=== PATIENT | female | born 1990 | race Caucasian/White ===

== ENCOUNTER 2017-01-27 05:50 | Inpatient (IN) ==
[2017-01-27] MEDS ORDERED: Metoclopramide 10 MG/2 ML VIAL IVP PRN (05:55)
[2017-01-27] MEDS ORDERED: Naloxone 0.4 MG/ML INJ IVP PRN ×2 (05:55→08:27)
[2017-01-27] MEDS ORDERED: Famotidine 20 MG/2 ML VIAL IVP PRN (05:55)
[2017-01-27] MEDS ORDERED: Oxytocin 20 units/ LR 1000 mL 20 UNIT/1,000 ML BAG IVC SCH ×2 (06:00→19:45)
[2017-01-27] MEDS ORDERED: Ringers Solution, Lactated 1,000 ML IVC SCH (06:00)
[2017-01-27 06:42] LABS: Basophils % 0.3 %; Eosinophils # 0.1 K/mcL (0.0-0.6); Eosinophils % 0.5 %; Hematocrit 34.5 % (35.3-44.9); Hemoglobin 11.5 g/dL (11.5-15.4); Immature Platelets 11.2 % (1.1-6.1); Lymphocytes # 1.9 K/mcL (0.6-4.6); Mean Corpuscular HGB Conc 33.3 g/dL (31.6-35.5); Mean Corpuscular Hemoglobin 29.6 pg (28.0-33.3); Mean Corpuscular Volume 88.7 fL (83.0-100.0); Mean Platelet Volume 11.5 fL (9.4-12.4); Monocytes # 0.8 K/mcL (0.0-1.3); Monocytes % 6.3 %; Neutrophils # 9.2 K/mcL (1.6-8.9); Platelet Count 330 K/mcL (140-400); Red Blood Count 3.89 M/mcL (3.82-4.97); Segmented Neutrophils % 75.9 %
--- NOTE | 2017-01-27 08:24 | OB/GYN History & Physical ---
Date of Encounter: 01/27/17 Time of Encounter: 08:22 Assessment and Plan (1) Elective induction of labor planned Current visit: Yes Status: Acute patient is gregor and making change on her own, allow labor to progress, if unchanged within the next 2 hrs, AROM and start pitocin, anticipate History of Present Illness HPI: Ms. Garcia is a 26 year old female @ 40+4 weeks who presents to L&D for IOL. She presents with ctxs, no LOF, VB , feels good FM, uncomplicated course to date. Past Med Surg Social Fam HX - Past Medical History Medical history: no medical history Psychiatric history: no psych history - Past Surgical History Surgical History: no surgical history - Social History Smoking Status: Former smoker Smokeless Tobacco Status: No Alcohol use: none Drug use: none - Family History Mother Age: 43 Living Status: Still Living Hx Family Cardiac Disorders: No Hx Family Respiratory Disorders: No Hx Family Cancer: No Hx Family GI Disorders: No Hx Family Genitourinary Disorders: No Hx Family Endocrine Disorder: No Hx Family Musculoskeletal Disorders: No Hx Family Neuromuscular Disorders: No Hx Family Neurologic Disorders: No Hx Family HEENT Disorders: No Hx Family Autoimmune Disorders: No Hx Family Reproductive Disorders: No Hx Family Psychosocial Disorders: No Hx Family Medical Disorders: No Obstetrical History - Pregnancies : 1 Medications and Allergies No Known Home Drugs 01/27/17 [History] 3 Allergy/AdvReac Type Severity Reaction Status Date / Time No Known Allergies Allergy Verified 01/27/17 06:31 Review of System OB All systems PM: reviewed and no additional remarkable complaints except as stated Exam - Vital Signs Vital signs: Initial Vital Signs Pulse Resp BP 95 16 132/88 01/27/17 06:32 01/27/17 06:32 01/27/17 06:32 - Constitutional Constitutional: no acute distress - HEENT HEENT: PERRL - Neck Neck exam: full ROM - Lungs Respiratory exam: CTAB - Cardiovascular Cardiovascular exam: RRR - Abdomen Abdomen: Present: gravid - Extremities Extremities exam: warm - Cervix Dilation: 4 Results Result Diagrams: 01/27/17 06:30 Abnormal lab results WBC 12.1 K/mcL (4.3-11.1) H 01/27/17 06:30 Hct 34.5 % (35.3-44.9) L 01/27/17 06:30 Neutrophils # 9.2 K/mcL (1.6-8.9) H 01/27/17 06:30 Immature Plt Fraction 11.2 % (1.1-6.1) H 01/27/17 06:30 All other labs normal. - VTE Reasons for not Prescribing Prophylaxis: Treatment not Indicated - Low risk for VTE
[2017-01-27] MEDS ORDERED: Ondansetron 4 MG/2 ML VIAL IVP PRN (08:27)
[2017-01-27] MEDS ORDERED: *HR* FentaNYL (PF) 100 MCG/2 ML VIAL EP ONE (08:27)
[2017-01-27] MEDS ORDERED: EPHEDrine 50 MG/ML VIAL IVP PRN (08:27)
[2017-01-27] MEDS ORDERED: Bupivacaine-MPF 0.25% 10 ML VIAL EP ONE (08:27)
[2017-01-27] MEDS ORDERED: Epidural Premix (fent/bupiv) 110 ML EP SCH (08:30)
--- NOTE | 2017-01-27 08:31 | Anesthesia Evaluation PreOp ---
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: Denies Any Significant HX Other Medical History: Denies Any Significant HX Anesthesia History: No Prior Anesthetic Complications : Yes Alcohol Use: none Drug use: none Medications and Allergies No Known Home Drugs 01/27/17 [History] 3 Allergy/AdvReac Type Severity Reaction Status Date / Time No Known Allergies Allergy Verified 01/27/17 06:31 - Meds/Allergy Pre-op Review Medications Reviewed: Yes Allergies Reviewed: Yes Beta Blockers on Current Med List: No Anesthesia Results - Labs 01/27/17 06:30 Anesthesia Exam T 98.4 BP 127/84 P 66 Height: 5'3" Weight: 72.9kg NPO (# of Hours): 8 Pain Scale: 5 (with contractions) Pain Scale Used: Numeric (1 - 10) - HEENT Pupil (Motor): Pupils equal Mallampati: II Oral Opening: Greater than 3 - ACQUISITIONS LOGISTICS ANALYST LOC: Oriented ACQUISITIONS LOGISTICS ANALYST Motor: Normal RUE, Normal LUE, Normal RLE, Normal LLE, Normal Face ACQUISITIONS LOGISTICS ANALYST Sensory: Normal: RUE, LUE, RLE, LLE, Face - Cardiac Rhythm: Regular Murmur: None JVD: No Carotid Bruit: No - Pulmonary Breath Sounds: bilateral Clear Respiratory Effort: Symmetrical Anesthesia Assess/Plan ASA Score: 2 Modified [place] Scale for Level of Consciousness: Cooperative, oriented, and tranquil Anesthetic Plan: Regional Autologous Blood: No Monitoring Plan: Standard Monitors Recovery Plan: Other
[2017-01-27] MEDS ORDERED: Epidural Premix (fent/bupiv) 110 ML EP ONE ×2 (08:34→16:00)
[2017-01-27] MEDS ORDERED: *HR* FentaNYL (PF) 100 MCG/2 ML VIAL ONE (08:34)
[2017-01-27] MEDS ORDERED: Bupivacaine-MPF 0.25% 10 ML VIAL ONE (08:34)
--- NOTE | 2017-01-27 09:46 | Anesthesia Procedures ---
Date of Encounter: 01/27/17 Time of Encounter: 09:43 Procedures: Anesthesia - Epidural/Spinal Patient ID/Chart reviewed: Yes Patient examined: Yes OB Eval: Gestational age: 40 OB Eval: : 1 OB Eval: Hx Para: 0 OB Eval: Dilated at (cm): 4 OB Eval: Contractions: Non-stressed pattern Consent Obtained: Yes Supplemental Oxygen: None/Room Air Site Prep: Aseptic Technique, Sterile prep and drape, Povidone-Iodine 1% Patient position: upright Local Anesthetic: Lidocaine 1% Amount of Local Anesthetic used: 3 Touhy Needle Gauge: 18 Touhy Needle Depth (cm): 6 Catheter Depth at Skin (cm): 15 Test Dose (1.5% Lido + Epi): Volume given (mls): 3 Test Dose Result: Negative Loading Dose: 0.25% Marcaine (mls): 10 Loading Dose: Fentanyl (mcg): 100 Loading Dose Administered: Thru Catheter Infusion Med: 0.125% Bupivacaine w/ 2 mcg/ml Fentanyl Infusion Rate (mls/hr): [address]: Tegaderm, Tape Interspace Used: L4-L5 Loss of Resistance (HARRIS): Yes Blood: No CSF: No Paresthesia: No Procedure: RADHA placed 1st pass without any immediate noted complications. VSS Vitals + FHT's: 0916 BP 126/72 P 88 R 18 0939 BP134/68 P 90 R 16
--- NOTE | 2017-01-27 12:53 | OB Labor Progress Note ---
Date of Encounter: 01/27/17 Time of Encounter: 12:53 Labor Progress Note - Subjective Subjective: Patient doing well, has epidural - Vital Signs Vital Signs: VSS - Cervix Cervix: ant lip - Plan Plan: patient AROM'ed, anticipate
[2017-01-27] MEDS ORDERED: ROPIVACAINE HCL/PF 0.5% 30 ML VIAL ONE (14:16)
--- NOTE | 2017-01-27 14:35 | Anesthesia Progress Note ---
Date of Encounter: 01/27/17 Time of Encounter: 14:33 Anesthesia Note - Note Note: 01/27/17 14:33 Pt complaining of breakthrough pain in lower abdomen extending evenly across at 8 of 10. Ropivicaine 0.5% 7ml administered as bolus. Will follow up. Reason for Cancellation: Other
[2017-01-27] MEDS ORDERED: *HR* HYDROcodone/Acet 5/325 mg TABLET PO PRN (19:45)
[2017-01-27] MEDS ORDERED: Benzocaine/Menthol 56 GM AEROSOL SPRAY TP PRN (19:45)
[2017-01-27] MEDS ORDERED: Lanolin 7 G OINT...G. TP PRN (19:45)
[2017-01-27] MEDS ORDERED: Acetaminophen 325 MG TABLET PO PRN (19:45)
--- NOTE | 2017-01-27 21:38 | OB/GYN Procedure Note ---
Delivery - Delivery Date: 01/27/17 Provider: Samuel Phelps Intrapartum events: none Delivery induction: none Delivery augmentation: rupture of membranes Delivery monitor: external uterine Anesthesia: epidural Estimated Blood Loss: 200 - Infant (s) A Infant Delivery Date: 01/27/17 Infant Delivery Time: 16:58 Presentation: vertex Position: CHARO Gender: Female Viability: Viable Weight Gram: 3.1 kg at 1 minute: 8 at 5 mins: 9 Shoulder Dystocia: not encountered Placenta: spontaneous Cord: 3 umbilical vessels - Repair Episiotomy: mediolateral Laceration Description: None, Periurethral - Complications Delivery complications: none - Disposition Mom disposition: stable in LDR [place] disposition: stable in LDR - Comments Comments: Mercy is a 26 y/o now @ 40+4 weeks who delivered a viable female CHARO with infant weight 3100g @ 1658hrs via VAVD after mediolateral episiotomy was made. Placenta was delivered @ 1706hrs, APGARs 8/9, EBL 200. Mediolateral episiotomy repaired in usual fashion. Periurethral laceration repaired with 3-0 vicryl. Mother and doing well.
[2017-01-28] MEDS: Ibuprofen 600 MG TABLET PO PRN ×2 (03:55→12:11)
[2017-01-28 07:17] LABS: Basophils % 0.2 %; Eosinophils # 0.1 K/mcL (0.0-0.6); Eosinophils % 0.3 %; Hematocrit 28.3 % (35.3-44.9); Immature Granulocytes % 0.6 % (0-4); Lymphocytes # 1.9 K/mcL (0.6-4.6); Lymphocytes % 12.7 %; Mean Corpuscular HGB Conc 32.9 g/dL (31.6-35.5); Mean Corpuscular Volume 88.2 fL (83.0-100.0); Mean Platelet Volume 11.3 fL (9.4-12.4); Monocytes # 0.9 K/mcL (0.0-1.3); Monocytes % 6.3 %; Neutrophils # 11.7 K/mcL (1.6-8.9); Platelet Count 233 K/mcL (140-400); Red Blood Count 3.21 M/mcL (3.82-4.97); Red Cell Distribution Width 14.4 % (11.5-14.5); Segmented Neutrophils % 79.9 %
[2017-01-28 07:24] LABS: Hemoglobin 9.3 g/dL (11.5-15.4)
[2017-01-28] MEDS ORDERED: Prenatal Vit/FA 1 EACH TABLET PO SCH (09:00)
--- NOTE | 2017-01-28 09:27 | Discharge Summary ---
Date of Encounter: 01/28/17 Time of Encounter: 09:25 - Discharge Diagnosis (1) Vaginal delivery Priority: Primary Status: Acute Comments: Patient doing well s/p vaginal delivery. Epis is feeling ok. will provide sitz bath with instructions prior to discharge and dermaplast spray VSS Lochia is light and without clots Pain is well controlled Voiding without difficulty and passing flatus without difficulty Discharge home today. (2) Patient is a currently breast-feeding mother Priority: Secondary Status: Acute Comments: is going well Patient would like a breastpump - Discharge Medications Prescriptions: Ibuprofen [Motrin] 600 mg PO Q6HR PRN #30 tab PRN Reason: Cramping Docusate [Colace] 100 mg PO BID #15 Ferrous Sulfate 325 mg PO DAILY #30 tab Home Medications: Acetaminophen [Tylenol] 650 mg PO Q6HR PRN tab 01/28/17 [Rx] Benzocaine/Menthol [place] [Dermoplast [place]] 1 appl TP QID PRN aerosol 01/28/17 [Rx] Docusate [Colace] 100 mg PO BID #15 01/28/17 [Rx] Ferrous Sulfate 325 mg PO DAILY #30 tab 01/28/17 [Rx] Ibuprofen [Motrin] 600 mg PO Q6HR PRN #30 tab 01/28/17 [Rx] Lanolin [Lansinoh] 1 appl TP QID PRN 01/28/17 [Rx] Vit/FA 1 each PO DAILY tab 01/28/17 [Rx] Allergies/Adverse Reactions: 3 Allergy/AdvReac Type Severity Reaction Status Date / Time No Known Allergies Allergy Verified 01/27/17 06:31 Data Procedures and tests throughout hospitalization: Laboratory Tests 01/27/17 01/28/17 06:30 06:56 WBC 12.1 H 14.7 H RBC 3.89 3.21 L Hgb 11.5 9.3 L D Hct 34.5 L 28.3 L MCV 88.7 88.2 MCH 29.6 29.0 MCHC 33.3 32.9 RDW 14.0 14.4 Plt Count 330 233 MPV 11.5 11.3 Immature Gran % 1.0 0.6 Seg Neutrophils % 75.9 79.9 Lymphocytes % 16.0 12.7 Monocytes % 6.3 6.3 Eosinophils % 0.5 0.3 Basophils % 0.3 0.2 Neutrophils # 9.2 H 11.7 H Lymphocytes # 1.9 1.9 Monocytes # 0.8 0.9 Eosinophils # 0.1 0.1 Basophils # 0.0 0.0 Immature Plt Fraction 11.2 H Labs on day of discharge: Labs from last 24 hours 01/28/17 06:56 WBC 14.7 H RBC 3.21 L Hgb 9.3 L D Hct 28.3 L MCV 88.2 MCH 29.0 MCHC 32.9 RDW 14.4 Plt Count 233 MPV 11.3 Immature Gran % 0.6 Seg Neutrophils % 79.9 Lymphocytes % 12.7 Monocytes % 6.3 Eosinophils % 0.3 Basophils % 0.2 Neutrophils # 11.7 H Lymphocytes # 1.9 Monocytes # 0.9 Eosinophils # 0.1 Basophils # 0.0 Date of admission: 01/27/17 05:50 Primary care physician: PCP KENROY Consults: 01/27/17 19:45 Consult to Occ Therapist [CONS] Routine Comment: Vaginal delivery, consult needed Discharging clinician: Tori Herrera Anticipated date of discharge: 01/28/17 - Patient Status Disposition: Home, Self-Care Condition: Good Functional capacity at discharge: independent ambulation Overall status at discharge: patient is progressing back to baseline - Discharge Instructions Follow Up With: NONE,PCP [Primary Care Provider] - Samuel Phelps MD [Partnered Physician] - - Diet and Activity Activity: increase activity as tolerated Diet: regular diet Hospital Course Reason for admission: induction of labor, IUP at term Delivery: , vacuum extraction Episiotomy: mediolateral Laceration: none Other procedures: none complications: none Discharge diagnosis: IUP at term delivered [place] baby: female Time Attestation: Total time spent providing and/or coordinating discharge services: Time Spent: Less than 30 minutes Exam - Constitutional Vitals: Temp Pulse Resp BP Pulse Ox 97.4 F L 71 12 108/70 98 01/28/17 07:40 01/28/17 07:40 01/28/17 07:40 01/28/17 07:40 01/28/17 07:40 General appearance IM: cooperative, A&O X 3, pleasant - Respiratory Respiratory exam: Present: CTAB - Cardiovascular Cardiovascular exam IM: Present: RRR, +S1, +S2 - GI/Abdominal GI/Abdominal exam IM: normal bowel sounds, soft - Uterine Tone: Firm Uterus Position: 2 Fingers Below Umbilicus, Midline - Extremities Exam Extremities exam IM: Present: normal capillary refill, normal inspection, radial pulses palpable and symmetrical - Neurological Exam Neurological exam: alert, oriented X3
[2017-01-28 16:17] VITALS: BP 123/78
== END 2017-01-28 17:30 | disposition home or self-care (01) | DRG 775 ==
LOC: 1NENULAB 05:50 → 1NENUOBS 19:44
PROVIDERS: ADMIT Student in an Organized Health Care Education/Training Program; ATTEND Student in an Organized Health Care Education/Training Program